=== PATIENT | male | born 1950 ===

== ENCOUNTER 2021-03-02 06:35 | Day surgery (SDC) | payer OTHER ==
[~2021-03-02 06:35] MED LIST: FINASTERIDE5 MG PO; GLUMETZA500 MG PO; PRAVASTATIN SOD20 MG PO; RAPAFLO8 MG PO; TOPROL XL25 M1 PO; XARELTO20 M1 PO
== END 2021-03-02 17:10 | disposition home or self-care (01) ==
LOC: CIR.AMB 06:35
PROVIDERS: ATTEND Urology
DX: N43.2 Other hydrocele (principal); Z20.822 Contact with and (suspected) exposure to COVID-19